=== PATIENT | male | born 1980 | race Caucasian/White ===

== ENCOUNTER → 2024-09-10 | Outpatient (CLI) | payer BC, SELFPAY ==
[2024-09-10 08:22] LABS: Misc Send Out* See Sep Rpt
[2024-09-10 08:56] LABS: Basophils # (Auto) 0.1 Thou/mm3 (0.0-0.2); Basophils % (Auto) 1 % (0-2.5); Eosinophils # (Auto) 0.5 Thou/mm3 (0.0-0.5); Eosinophils % (Auto) 7 % (0-10); Hematocrit 42.3 % (41.0-53.0); Immature Granulocytes % (Auto) 0 % (0-0); Immature Granulocytes Auto 0.01 Thou/mm3 (0.00-0.00); Lymphocytes # (Auto) 2.3 Thou/mm3 (1.0-4.8); Lymphocytes % (Auto) 34 % (10-50); Mean Corpuscular HGB Conc 33.1 g/dl (31.0-37.0); Mean Corpuscular Hemoglobin 27.5 pg (25.0-35.0); Mean Corpuscular Volume 83 fL (80-100); Monocytes # (Auto) 0.7 Thou/mm3 (0.0-0.8); Monocytes % (Auto) 10 % (0-12); Neutrophils # (Auto) 3.3 Thou/mm3 (1.8-7.7); Neutrophils % (Auto) 49 % (37-80); Nucleated Red Blood Cell % 0 /100 WBC (0); Platelet Count 190 Thou/mm3 (140-440); RDW Standard Deviation 38.5 fL (35.1-43.9); Red Blood Count 5.09 Miln/mm3 (4.50-5.90); White Blood Count 6.8 Thou/mm3 (3.8-10.6)
[2024-09-10 09:34] LABS: Sed Rate (ESR) 17 mm/hr (0-15)
[2024-09-10 09:47] LABS: Alanine Aminotransferase 49 U/L (10-49); Albumin, Serum 4.5 gm/dL (3.5-5.0); Albumin/Globulin Ratio 1.6 (1.2-2.2); Alkaline Phosphatase 117 U/L (46-116); Anion Gap 7 (7-16); Aspartate Amino Transferase 16 U/L (0-34); BUN/Creatinine Ratio 27 Ratio (12-20); Bilirubin,Total 0.3 mg/dL (0.3-1.2); Blood Urea Nitrogen 24 mg/dL (9-23); C-Reactive Protein < 0.4 mg/dL (0.0-0.9); Calcium 9.6 mg/dL (8.3-10.6); Calcium (Corrected) 9.6 mg/dL (8.5-10.1); Carbon Dioxide 27.5 mMol/L (20.0-31.0); Cardiac Risk Estimate 8.3 RATIO (4.0-6.7); Chloride 105 mMol/L (98-107); Cholesterol 231 mg/dL (132-200); Creatinine (Component) 0.9 mg/dL (0.6-1.3); Globulin 2.8 gm/dL (2.3-3.5); Glucose 124 mg/dL (74-106); HDL Cholesterol 28 mg/dL (40-60); Osmolality,Calculated 282 (275-295); Potassium 4.4 mMol/L (3.4-5.1); Sodium 139 mMol/L (136-145); Total Protein 7.3 gm/dL (5.7-8.2); Triglycerides 1636 mg/dL (30-150); eGFR > 60 See Note
[2024-09-10 09:48] LABS: Glucose Estimated Average 105 mg/dL (80-131); Hemoglobin A1C 5.3 % Hgb (4.8-6.0)
[2024-09-18 06:26] LABS: Immunoglobulin A 234 mg/dL (47-310); tTG Ab, IgA <1.0 U/mL
== END | disposition home or self-care (01) ==
LOC: COPL 07:57
PROVIDERS: PCP Internal Medicine; Referring Provider Specialist; Visit Provider Specialist
DX: R19.7 Diarrhea, unspecified (principal); E78.2 Mixed hyperlipidemia; I10 Essential (primary) hypertension
CPT/HCPCS: 36415; 80053; 80061; 82784; 83036; 85025; 85652; 86021; 86036; 86140; 86364; 86671

== ENCOUNTER → 2024-09-17 | Outpatient (CLI) | payer BC, SELFPAY ==
[2024-09-25 06:35] LABS: Calprotectin, Stool* 91 mcg/g
== END | disposition home or self-care (01) ==
LOC: SLDO 13:00
PROVIDERS: Referring Provider Specialist; Visit Provider Specialist
DX: R19.7 Diarrhea, unspecified (principal)
CPT/HCPCS: 83993

== ENCOUNTER 2024-09-22 09:47 | Emergency (ER) | payer BC, SELFPAY ==
--- NOTE | 2024-09-22 | XR_ITS ---
Examination: MRI right ankle, without contrast Date and time of exam: September 22, 2024 at 1753 hrs. Indications: Injury to the ankle 3 days ago with ankle pain Technique: Multiple axial sagittal and coronal images of the right ankle have been obtained with the Siemens high-resolution 1.5 Cassandra MRI scanner. Images obtained include T2-weighted fat-suppressed sagittal sections, TR 3500, TE 46, T2 weighted coronal fat suppressed images, TR 3050, TE 84, T2-weighted transverse fat suppressed images, TR 3260, TE 63, proton density transverse images, TR 4720 TE 46, and T1 weighted coronal images, TR 560, TE 13. Findings: Significant thickening of the Achilles tendon Moderate plantar fasciitis Normal color ankle fracture bone contusion or marrow edema Negative for sinus Tarsi syndrome Anterior posterior inferior tibiofibular ligaments intact Mild strain posterior talofibular ligament Tendinitis posterior tibial flexor digitorum and flexor hallucis longus tendons Tear of the calcaneofibular ligament coronal image 20 Impression: No occult fracture Diffuse edema surrounding the ankle Achilles tendon is intact Complete tear calcaneal fibular ligament Mild sprain posterior talofibular ligament Tendinitis posterior tibial, flexor digitorum and flexor hallucis longus tendons
--- NOTE | 2024-09-22 10:24 | PD.EDANKLE ---
Lower Extremity Injury RME/HPI General Chief Complaint: Ankle/Foot Injury Stated Complaint: RIGHT ANKLE / FOOT INJURY X 3 DAYS Time Seen by Provider: 09/22/24 10:21 Arrival date/time: 09/22/24 09:47 RME / HPI RME / HPI Narrative: 43-year-old patient presents emergency department with complaint of right ankle/foot injury for the past 3 days. Patient states that he was jump rope when he accidentally landed awkwardly causing pain to his right ankle and foot patient states he is unable to bear weight on it he is unable to tiptoe almost be on his heel. He denies numbness and tingling to distal foot. He rates his pain currently as a 10 out of 10. Related Data Home Medications ?Medication ?Instructions ?Recorded ?Confirmed alprazolam 0.25 mg tablet 0.25 mg PO QDAY 03/31/18 03/31/18 aspirin 81 mg chewable tablet 81 mg PO QDAY 03/31/18 03/31/18 atenolol 25 mg tablet 25 mg PO QDAY 03/31/18 03/31/18 atorvastatin 80 mg tablet 80 mg PO QDAY 03/31/18 03/31/18 lisinopril 10 mg tablet 10 mg PO QDAY 03/31/18 03/31/18 Previous Rx's ?Medication ?Instructions ?Recorded ondansetron 4 mg disintegrating 4 mg PO Q8H PRN nausea and 07/18/24 tablet vomiting #20 tabs Allergies Allergy/AdvReac Type Severity Reaction Status Date / Time No Known Allergies Allergy Verified 03/31/18 09:54 Course Orders Category Date Time Status MRI Screening NOW Care 09/22/24 10:23 Active Heel [XR calcaneus RT min 2V] Stat Exams 09/22/24 14:55 Completed MR foot RT wo con Stat Exams 09/22/24 Ordered XR foot comp RT min 3V Stat Exams 09/22/24 14:55 Completed HYDROcodone/APAP 10 [[place] 10] Med 09/22/24 10:22 Discontinued 1 tab PO X1 ONE Vital Signs Vital signs: Vital Signs Temperature 97.9 F 09/22/24 10:26 Pulse Rate 82 09/22/24 10:26 Respiratory Rate 19 09/22/24 10:26 Blood Pressure 174/104 H 09/22/24 10:26 Pulse Oximetry (%) 96 09/22/24 10:26 Oxygen Delivery Method Room Air 09/22/24 10:26 Extremity Injury, Lower Medications / Prescriptions Medication administrations:: Medication Administration History Discontinued Medications Hydrocodone Bitart/Acetaminophen (Hydrocodone/Apap 10 Tab) 1 tab PO X1 ONE Stop: 09/22/24 10:23 Last Admin: 09/22/24 10:29 Dose: 1 tab Documented By: DO Discharge Plan Prescriptions/Referrals Prescriptions/Med Rec: No Action atorvastatin 80 mg Tablet 80 mg PO QDAY atenolol 25 mg Tablet 25 mg PO QDAY alprazolam 0.25 mg Tablet 0.25 mg PO QDAY lisinopril 10 mg Tablet 10 mg PO QDAY aspirin 81 mg Tablet,Chewable 81 mg PO QDAY ondansetron 4 mg tablet,disintegrating 4 mg PO Q8H PRN (Reason: nausea and vomiting) Qty: 20 0RF Referrals: Partha Pairs MD [Primary Care Provider] - In 1 week Patient/Caregiver Discharge Instructions Print Language: Armenian
[2024-09-22 10:26] VITALS: BP 174/104; PULSE 82; RESP 19; TEMP 36.6; O2SAT 96; BMI 31.0
[2024-09-22] MEDS: HYDROcodone/APAP 10/325 TAB PO (10:29)
--- NOTE | 2024-09-22 14:55 | XR_ITS ---
Examination: Foot, right, 3 views Technique: AP, oblique, lateral views foot, 3 views Date and time of exam: September 22, 2024 at 1515 hrs. Comparison July 14, 2012 Indications: Right foot pain beginning 3 days ago Findings: Mild osteopenia 4 mm plantar bony calcaneal spur Mild narrowing tibiotalar joint No erosive arthritis No fracture No opaque foreign body Impression: 4 mm plantar bony calcaneal spur Mild narrowing tibiotalar joint No fracture No erosive arthritis
--- NOTE | 2024-09-22 14:55 | XR_ITS ---
Examination: Right os calcis 2 views Technique: Lateral axial os calcis right 2 views Indications: Ankle pain beginning 2 days ago. Findings: Mild narrowing tibiotalar joint No fracture 4 mm plantar bony calcaneal spur Impression: 4 mm plantar bony calcaneal spur
--- NOTE | 2024-09-22 18:07 | PD.EDRME ---
Rapid Medical Screening Exam E Arrival date/time: 09/22/24 09:47 Chief Complaint: Ankle/Foot Injury Time Seen by Provider: 09/22/24 10:21 Vital signs: Vital Signs Temperature 97.9 F 09/22/24 10:26 Pulse Rate 82 09/22/24 10:26 Respiratory Rate 19 09/22/24 10:26 Blood Pressure 174/104 H 09/22/24 10:26 Pulse Oximetry (%) 96 09/22/24 10:26 Oxygen Delivery Method Room Air 09/22/24 10:26 RME Narrative: 43-year-old patient presents emergency department with complaint of right ankle/foot injury for the past 3 days. Patient states that he was jump rope when he accidentally landed awkwardly causing pain to his right ankle and foot patient states he is unable to bear weight on it he is unable to tiptoe almost be on his heel. He denies numbness and tingling to distal foot. He rates his pain currently as a 10 out of 10.
[2024-09-22 19:33] VITALS: BP 181/110; PULSE 77; RESP 21; TEMP 37; O2SAT 95
--- NOTE | 2024-09-22 21:07 | PD.EDADDENDU ---
Emergency Room Addendum Addendum Narrative: Patient was seen at 10:24 AM and note was canceled. 2106: MRI is completed but interpretation is still pending by the radiologist.
--- NOTE | 2024-09-22 22:43 | PD.EDANKLE ---
Lower Extremity Injury RME/HPI General Chief Complaint: Ankle/Foot Injury Stated Complaint: RIGHT ANKLE / FOOT INJURY X 3 DAYS Time Seen by Provider: 09/22/24 10:21 Arrival date/time: 09/22/24 09:47 This is a 43 year-old patient presents emergency department with complaint of right ankle/foot injury for the past 3 days. Patient states that he was jump rope when he accidentally landed awkwardly causing pain to his right ankle and foot patient states he is unable to bear weight on it he is unable to tiptoe almost be on his heel. He denies numbness and tingling to distal foot. He rates his pain currently as a 10 out of 10. RME / HPI RME / HPI Narrative: 43-year-old patient presents emergency department with complaint of right ankle/foot injury for the past 3 days. Patient states that he was jump rope when he accidentally landed awkwardly causing pain to his right ankle and foot patient states he is unable to bear weight on it he is unable to tiptoe almost be on his heel. He denies numbness and tingling to distal foot. He rates his pain currently as a 10 out of 10. Related Data Home Medications ?Medication ?Instructions ?Recorded ?Confirmed alprazolam 0.25 mg tablet 0.25 mg PO QDAY 03/31/18 03/31/18 aspirin 81 mg chewable tablet 81 mg PO QDAY 03/31/18 03/31/18 atenolol 25 mg tablet 25 mg PO QDAY 03/31/18 03/31/18 atorvastatin 80 mg tablet 80 mg PO QDAY 03/31/18 03/31/18 lisinopril 10 mg tablet 10 mg PO QDAY 03/31/18 03/31/18 Previous Rx's ?Medication ?Instructions ?Recorded ondansetron 4 mg disintegrating 4 mg PO Q8H PRN nausea and 07/18/24 tablet vomiting #20 tabs hydrocodone 10 mg-acetaminophen 1 tab PO Q6H PRN pain #20 tabs 09/22/24 325 mg tablet Allergies Allergy/AdvReac Type Severity Reaction Status Date / Time No Known Allergies Allergy Verified 03/31/18 09:54 Review of Systems Review of Systems Systems Reviewed: All systems reviewed, normal except as documented Past Medical History Past Medical History Comments PMH COMMENT: Denies ED Exam General General appearance: Present alert and in no apparent distress Head Head exam: Present atraumatic Eye Eye exam: Present normal appearance, PERRL and EOMI ENT ENT exam: Present normal exam, normal oropharynx and mucous membranes moist Neck Neck exam: Present normal inspection, full ROM and trachea midline Chest Chest inspection: Present normal inspection and symmetric chest wall rise Respiratory Respiratory exam: Present other (Breathing even and unlabored) Cardiovascular Cardiovascular exam: Present regular rate Abdominal Exam Abdominal exam: Present soft Extremities Exam Extremities exam: Present normal capillary refill and other (Right ankle swelling laterally, pain with range of motion, ) Back Exam Back exam: Present normal inspection and full ROM Neurological Exam Neurological exam: Present alert, oriented X3 and CN II-XII intact Psychiatric Psychiatric exam: Present normal affect and normal mood Skin Skin exam: Present warm, dry, intact and normal color Course Quality Measures none Orders Category Date Time Status MRI Screening NOW Care 09/22/24 10:23 Completed MRI Screening NOW Care 09/22/24 16:31 Completed Heel [XR calcaneus RT min 2V] Stat Exams 09/22/24 14:55 Completed MR ankle RT wo con Stat Exams 09/22/24 Completed XR foot comp RT min 3V Stat Exams 09/22/24 14:55 Completed HYDROcodone*/APAP 5/325 [[place] 5/325] Med 09/22/24 22:43 Discontinued 2 tab PO X1 ONE HYDROcodone/APAP 10/325 [[place] 10/325] Med 09/22/24 10:22 Discontinued 1 tab PO X1 ONE Vital Signs Vital signs: Vital Signs Temperature 97.9 F 09/22/24 10:26 Pulse Rate 82 09/22/24 10:26 Respiratory Rate 19 09/22/24 10:26 Blood Pressure 174/104 H 09/22/24 10:26 Pulse Oximetry (%) 96 09/22/24 10:26 Oxygen Delivery Method Room Air 09/22/24 10:26 Extremity Injury, Lower MDM Narrative MDM Narrative:: MRI ankle: Impression: No occult fracture Diffuse edema surrounding the ankle Achilles tendon is intact Complete tear calcaneal fibular ligament Mild sprain posterior talofibular ligament Tendinitis posterior tibial, flexor digitorum and flexor hallucis longus tendons I consulted who assessed patient at the bedside. He told patient that he wants him in crutches. He took a boot from his office and gave to patient For patient to wear. Patient is to follow-up with Dr. Mcbride's office Tuesday morning instructions were given to patient.. Patient given [place] for pain. Patient data External records reviewed:: [facility] previous records Clinical information provided by:: patient Social determinants that could affect healthcare access:: none Patient has the following chronic illnesses:: None How is presenting disease/condition affected by chronic disease/condition?: no chronic disease Evaluation data The following diagnostics were reviewed and interpreted by me:: radiology exam(s) Lab and/or radiology exams considered but not ordered:: none Interpretation Summary: See note Medications / Prescriptions Medications or Prescriptions considered but not ordered:: None Medication administrations:: Medication Administration History Discontinued Medications Hydrocodone Bitart/Acetaminophen (Hydrocodone/Apap 10/325 Tab) 1 tab PO X1 ONE Stop: 09/22/24 10:23 Last Admin: 09/22/24 10:29 Dose: 1 tab Documented By: DO Hydrocodone Bitart/Acetaminophen (Hydrocodone/Apap 5/325 Tablet) 2 tab PO X1 ONE Stop: 09/22/24 22:44 Last Admin: 09/22/24 22:55 Dose: 2 tab Documented By: AC See MAR Consultations Consultation(s) initiated? (list below): No Diagnosis Most likely diagnosis given after review of the tests above:: ligament tear Admission Indicated Admission indicated?: not indicated Admission Request Was there a request for admission?: No Disposition Plan Disposition Plan: Discharge Discharge Attestation Discharge Attestation: The patient and all family members were given an opportunity to ask questions and understood the discharge instructions. Discharge instructions specifically effects, indications for sooner follow up or return to the emergency department, and the expected course of current diagnosis. Patient condition: Stable Discharge Plan Plan Patient Disposition: HOME (Self Care) Patient condition on transfer: Stable Prescriptions/Referrals Prescriptions/Med Rec: New hydrocodone-acetaminophen 10-325 mg tablet 1 tab PO Q6H MDD 4 PRN (Reason: pain) Qty: 20 0RF No Action atorvastatin 80 mg Tablet 80 mg PO QDAY atenolol 25 mg Tablet 25 mg PO QDAY alprazolam 0.25 mg Tablet 0.25 mg PO QDAY lisinopril 10 mg Tablet 10 mg PO QDAY aspirin 81 mg Tablet,Chewable 81 mg PO QDAY ondansetron 4 mg tablet,disintegrating 4 mg PO Q8H PRN (Reason: nausea and vomiting) Qty: 20 0RF Referrals: Partha Paris MD [Primary Care Provider] - In 1 week Problem List Clinical Impression: Ligament tear, Ankle contusion Patient/Caregiver Discharge Instructions Discharge Activity: activity as tolerated Education Materials: Bone Contusion, ED Contusion, Lower Extremity, ED RICE Additional Instructions: Patient has a complete tear to calcaneal fibular ligament, patient will follow-up at Dr. Verma's office on Tuesday morning call for an appointment. Take medications for pain as prescribed. If pain is not severe can take half tablet. Come back to the emergency room if symptoms change or worsen. Use crutches. Print Language: Jamaican Stand Alone Forms: Gayle Award Info., Work/School Release, Patient Portal Info Letter PA/BOOKKEEPING ASSISTANT Supervising Physician PA/BOOKKEEPING ASSISTANT Supervising Physician: wallace
[2024-09-22] MEDS: HYDROcodone/APAP 5/325 TABLET 2 TAB PO (22:55)
[2024-09-22 23:38] VITALS: BP 142/89; PULSE 75; RESP 18; O2SAT 96
== END 2024-09-22 23:40 | disposition home or self-care (01) ==
PROVIDERS: Emergency Provider Emergency Medicine; PCP Internal Medicine
DX: S90.00XA Contusion of unspecified ankle, initial encounter (principal); S93.411A Sprain of calcaneofibular ligament of right ankle, initial encounter; Y93.56 Activity, jumping rope
CPT/HCPCS: 73630; 73650; 73721; 99284; A9270

== ENCOUNTER → 2024-10-20 | Outpatient (CLI) | payer BC, SELFPAY ==
--- NOTE | 2024-10-20 07:00 | XR_ITS ---
Examination: MRI right ankle, without contrast Date and time of exam: Airway 2024 0652 hours Comparison September 22, 2024 INDICATIONS: Injury to the ankle one month ago with persistent swelling and pain Technique: Multiple axial sagittal and coronal images of the left ankle have been obtained with the Siemens high-resolution 1.5 Cassandra MRI scanner. Images obtained include T2-weighted fat-suppressed sagittal sections, TR 3500, TE 46, T2 weighted coronal fat suppressed images, TR 3050, TE 84, T2-weighted transverse fat suppressed images, TR 3260, TE 63, proton density transverse images, TR 4720 TE 46, and T1 weighted coronal images, TR 560, TE 13. Findings: Significant marrow edema posterior calcaneus, suspicious for microtrabecular fracture lines Significant thickening of the Achilles tendon Distal tibia and distal fibula intact Talus navicular cuboid and cuneiforms intact Negative for sinus Tarsi syndrome Tendinitis posterior tibial flexor digitorum and flexor hallucis longus tendons Mild strain posterior talofibular ligament Significant marrow edema proximal third metatarsal Calcaneofibular ligament is incompletely visualized on this study IMPRESSION: Significant marrow edema posterior calcaneus and proximal third metatarsal, recommend CT scan foot without contrast follow-up to exclude fractures at these sites
== END | disposition home or self-care (01) ==
PROVIDERS: PCP Internal Medicine; Referring Provider Orthopaedic Surgery; Visit Provider Orthopaedic Surgery
DX: S93.411D Sprain of calcaneofibular ligament of right ankle, subsequent encounter (principal); X58.XXXD Exposure to other specified factors, subsequent encounter
CPT/HCPCS: 73721

== ENCOUNTER → 2024-11-19 | Outpatient (CLI) | payer BC, SELFPAY ==
--- NOTE | 2024-11-19 | XR_ITS ---
Examination: Foot, left, 3 views Technique: AP, oblique, lateral views foot, 3 views Date and time of exam: November 19, 2024 1228 hours INDICATIONS: Left foot and ankle pain and swelling beginning 4 days ago FINDINGS: Mild osteopenia. No fracture No cortical bone destruction Small plantar posterior bony calcaneal spurs Mild osteoarthritis intertarsal joints and tarsometatarsal joints No erosive arthritis IMPRESSION: Mild osteoarthritis
--- NOTE | 2024-11-19 | XR_ITS ---
EXAMINATION: Ankle, left 3 views . Technique: Ankle AP, oblique, lateral 3 views Date and time of exam: November 19, 2024 1228 hours INDICATIONS: Left foot and ankle pain swelling beginning 4 days ago. FINDINGS: Lateral malleolar soft tissue swelling Moderate osteopenia No fracture 6 mm plantar bony calcaneal spur IMPRESSION: No fracture or cortical bone destruction
== END | disposition home or self-care (01) ==
PROVIDERS: PCP Internal Medicine; Referring Provider Orthopaedic Surgery; Visit Provider Orthopaedic Surgery
DX: M25.572 Pain in left ankle and joints of left foot (principal); M19.072 Primary osteoarthritis, left ankle and foot; S93.411S Sprain of calcaneofibular ligament of right ankle, sequela; X58.XXXS Exposure to other specified factors, sequela
CPT/HCPCS: 73610; 73630

== ENCOUNTER → 2024-11-30 | Outpatient (CLI) | payer BC, SELFPAY ==
[2024-11-30 09:43] LABS: Glucose Estimated Average 114 mg/dL (80-131); Hemoglobin A1C 5.6 % Hgb (4.8-6.0)
[2024-11-30 09:55] LABS: Alanine Aminotransferase 61 U/L (10-49); Albumin, Serum 4.6 gm/dL (3.5-5.0); Albumin/Globulin Ratio 1.6 (1.2-2.2); Alkaline Phosphatase 120 U/L (46-116); Anion Gap 9 (7-16); Aspartate Amino Transferase 43 U/L (0-34); BUN/Creatinine Ratio 20 Ratio (12-20); Bilirubin,Total 0.4 mg/dL (0.3-1.2); Blood Urea Nitrogen 18 mg/dL (9-23); Calcium 9.8 mg/dL (8.3-10.6); Calcium (Corrected) 9.8 mg/dL (8.5-10.1); Carbon Dioxide 28.6 mMol/L (20.0-31.0); Cardiac Risk Estimate 4.1 RATIO (4.0-6.7); Chloride 104 mMol/L (98-107); Cholesterol 111 mg/dL (132-200); Creatinine (Component) 0.9 mg/dL (0.6-1.3); Globulin 2.8 gm/dL (2.3-3.5); Glucose 107 mg/dL (74-106); HDL Cholesterol 27 mg/dL (40-60); Osmolality,Calculated 285 (275-295); Potassium 4.7 mMol/L (3.4-5.1); Sodium 142 mMol/L (136-145); Total Protein 7.4 gm/dL (5.7-8.2); Triglycerides 588 mg/dL (30-150); eGFR > 60 See Note
== END | disposition home or self-care (01) ==
LOC: COPL 08:05
PROVIDERS: PCP Internal Medicine; Referring Provider Internal Medicine; Visit Provider Internal Medicine
DX: E78.2 Mixed hyperlipidemia (principal)
CPT/HCPCS: 36415; 80053; 80061; 83036

== ENCOUNTER → 2025-05-13 | Outpatient (CLI) | payer BC, SELFPAY ==
[2025-05-13 09:14] LABS: Alanine Aminotransferase 53 U/L (10-49); Albumin, Serum 4.6 gm/dL (3.5-5.0); Albumin/Globulin Ratio 1.8 (1.2-2.2); Alkaline Phosphatase 106 U/L (46-116); Anion Gap 10 (7-16); Aspartate Amino Transferase 37 U/L (0-34); BUN/Creatinine Ratio 22 Ratio (12-20); Bilirubin,Total 0.4 mg/dL (0.3-1.2); Blood Urea Nitrogen 22 mg/dL (9-23); Calcium 10.7 mg/dL (8.3-10.6); Calcium (Corrected) 10.7 mg/dL (8.5-10.1); Carbon Dioxide 25.3 mMol/L (20.0-31.0); Cardiac Risk Estimate 5.1 RATIO (4.0-6.7); Chloride 105 mMol/L (98-107); Cholesterol 132 mg/dL (132-200); Creatinine (Component) 1.0 mg/dL (0.6-1.3); Globulin 2.6 gm/dL (2.3-3.5); Glucose 116 mg/dL (74-106); HDL Cholesterol 26 mg/dL (40-60); Osmolality,Calculated 283 (275-295); Potassium 5.2 mMol/L (3.4-5.1); Sodium 140 mMol/L (136-145); Total Protein 7.2 gm/dL (5.7-8.2); Triglycerides 648 mg/dL (30-150); eGFR > 60 See Note
[2025-05-21 07:09] LABS: Testosterone, Free,Dialysis 50.8 pg/mL (35.0-155.0); Testosterone, Total, Dialysis 173 ng/dL (250-1100)
== END | disposition home or self-care (01) ==
LOC: COPL 07:11
PROVIDERS: PCP Internal Medicine; Referring Provider Internal Medicine; Visit Provider Internal Medicine
DX: E29.1 Testicular hypofunction (principal); I10 Essential (primary) hypertension
CPT/HCPCS: 36415; 80053; 80061; 84402; 84403

== ENCOUNTER → 2025-08-19 | Outpatient (CLI) | payer BC, SELFPAY ==
[2025-08-19 09:13] LABS: Alanine Aminotransferase 72 U/L (10-49); Albumin, Serum 5.0 gm/dL (3.5-5.0); Albumin/Globulin Ratio 1.9 (1.2-2.2); Alkaline Phosphatase 95 U/L (46-116); Anion Gap 11 (7-16); Aspartate Amino Transferase 48 U/L (0-34); BUN/Creatinine Ratio 18 Ratio (12-20); Bilirubin,Total 0.5 mg/dL (0.3-1.2); Blood Urea Nitrogen 16 mg/dL (9-23); Calcium 9.6 mg/dL (8.3-10.6); Calcium (Corrected) 9.6 mg/dL (8.5-10.1); Carbon Dioxide 28.6 mMol/L (20.0-31.0); Cardiac Risk Estimate 4.0 RATIO (4.0-6.7); Chloride 106 mMol/L (98-107); Cholesterol 131 mg/dL (132-200); Creatinine (Component) 0.9 mg/dL (0.6-1.3); Globulin 2.7 gm/dL (2.3-3.5); Glucose 119 mg/dL (74-106); HDL Cholesterol 33 mg/dL (40-60); LDL Cholesterol,Calculated 27 mg/dL (0-130); Osmolality,Calculated 292 (275-295); Potassium 5.0 mMol/L (3.4-5.1); Sodium 146 mMol/L (136-145); Total Protein 7.7 gm/dL (5.7-8.2); Triglycerides 357 mg/dL (30-150); eGFR > 60 See Note
== END | disposition home or self-care (01) ==
LOC: COPL 07:57
PROVIDERS: PCP Internal Medicine; Referring Provider Internal Medicine; Visit Provider Internal Medicine
DX: E78.2 Mixed hyperlipidemia (principal)
CPT/HCPCS: 36415; 80053; 80061